=== PATIENT | female | born 1980 | race African-American/Black ===

== ENCOUNTER 2019-12-11 20:41 | Emergency (ER) | payer SELFPAY ==
[~2019-12-11] VITALS: Ht 157.5 cm; Wt 65.0 kg
[2019-12-11] MEDS ORDERED: CYCLOBENZAPRINE 10MG TABLET PO ONE (21:30)
[2019-12-11] MEDS ORDERED: ACETAMINOPHEN 325MG TABLET PO ONE (21:30)
[2019-12-11 22:13] LABS: BASOPHILS % 0.6 % (0.0-2.0); CHLORIDE 110 mEq/L (98-107); HEMATOCRIT. 40.1 % (36.0-48.0); HEMOGLOBIN. 13.6 g/dL (12.0-16.0); LYMPHOCYTES % 30.3 % (20.0-50.0); MEAN CORPUSCULAR HEMOGLOBIN 29.7 pg (28.0-32.0); MEAN CORPUSCULAR VOLUME 87.7 fL (81.0-99.0); MEAN PLATELET VOLUME 8.2 fl (7.4-10.4); MONOCYTES % 9.8 % (2.0-8.0); NEUTROPHILS % 55.3 % (40.0-76.0); PLATELET 224 x1000/uL (130-400); RED BLOOD CELL COUNT 4.57 mill/uL (4.2-5.4)
[2019-12-11 22:19] LABS: HCG SCREEN NEGATIVE
[2019-12-11 22:21] LABS: CREATINE KINASE 31 IU/L (26-192)
[2019-12-11 23:10] VITALS: BP 137/95
== END 2019-12-11 23:11 | disposition home or self-care (01) ==
LOC: ER 20:41
DX: M06.9 Rheumatoid arthritis, unspecified (principal); Z88.0 Allergy status to penicillin; Z88.6 Allergy status to analgesic agent; Z88.8 Allergy status to other drugs, medicaments and biological substances; Z98.890 Other specified postprocedural states
CPT/HCPCS: 36415; 80053; 82550; 84703; 85025; 85379; 99283